=== PATIENT | male | born 1985 | race Caucasian/White ===

== ENCOUNTER 2016-12-07 09:44 | Inpatient (IN) | payer MEDICAID, OTHER ==
[2016-12-07 09:44] VITALS: BMI 24.4
--- NOTE | 2016-12-07 10:05 | C.PDOC ---
History Of Present Illness 31 Y/O MALE REQUESTING ETOH DETOX. STATES LAST DRINK WAS 2-4 DAYS AGO. NOW C/O WITHDRAWAL SYMPTOMS INCLUDING ANXIETY AND SHAKING. DENIES ANY OTHER DRUG USE. ALSO REPORTS +SUICIDAL IDEATON. DENIES HI OR ANY OTHER MEDICAL COMPLAINTS. Time Seen by Provider: 12/07/16 09:54 Chief Complaint (Nursing): Substance Abuse History Per: Patient History/Exam Limitations: no limitations Onset/Duration Of Symptoms: Persistent Current Symptoms Are (Timing): Still Present Modifying Factor(s): None Associated Symptoms: Anxiety, Suicidal Thoughts Recent travel outside of the [place]: No Past Medical History Reviewed: Historical Data, Nursing Documentation, Vital Signs Vital Signs: Last Vital Signs Temp 98.1 F 12/07/16 09:46 Pulse 79 12/07/16 09:46 Resp 18 12/07/16 09:46 BP 129/81 12/07/16 09:46 Pulse Ox 98 12/07/16 11:05 - Medical History PMH: Anxiety, Depression - [facility] Procedures PHARYNGEAL BIOPSY (07/19/14) Family History: States: Unknown Family Hx - Social History Hx Tobacco Use: Yes Hx Alcohol Use: Yes Hx Substance Use: No - Immunization History Hx Tetanus Toxoid Vaccination: No Hx Influenza Vaccination: No Hx Pneumococcal Vaccination: No Review Of Systems Constitutional: Negative for: Fever, Chills Cardiovascular: Negative for: Chest Pain, Palpitations Respiratory: Negative for: Cough, Shortness of Breath, Wheezing Gastrointestinal: Negative for: Nausea, Vomiting, Abdominal Pain Skin: Negative for: Rash Psych: Positive for: Anxiety, Suicidal ideation, Withdrawal Physical Exam - Physical Exam Appears: Non-toxic, No Acute Distress, Other (APPEARS ANXIOUS, JITTERY) Skin: Warm, Dry Head: Atraumatic, Normacephalic Oral Mucosa: Moist Chest: Symmetrical Cardiovascular: Rhythm Regular Respiratory: Normal Breath Sounds, No Rales, No Rhonchi, No Wheezing Gastrointestinal/Abdominal: Soft, No Tenderness, No Guarding, No Rebound Back: Normal Inspection Extremity: Normal ROM, Capillary Refill (< 2 SEC.) Neurological/Psych: Oriented x3, Normal Speech, Normal Cognition ED Course And Treatment - Laboratory Results Result Diagrams: 12/07/16 10:16 12/07/16 10:16 ECG: Interpreted By Me ECG Rhythm: Sinus Rhythm ECG Interpretation: Normal Rate From EC O2 Sat by Pulse Oximetry: 98 (RA) Pulse Ox Interpretation: Normal Progress - Re-Evaluation Re-evaluation Note: 12/07/16 10:05 D/W CRISIS LAURY WILL EVAL IN ER 12/07/16 11:05 MED CLEAR FOR PSYCH. CRISIS NOTIFIED - Data Reviewed Data Reviewed: Lab, Old records Disposition Counseled Patient/Family Regarding: Studies Performed, Diagnosis - Disposition Disposition: HOSPITALIZED Disposition Time: 11:27 Condition: STABLE Forms: [facility] (Uzbek) - POA Present On Arrival: None - Clinical Impression Clinical Impression: Depression, Alcohol dependence - Scribe Statement The provider has reviewed the documentation as recorded by the Scribe SM All medical record entries made by the Scribe were at my direction and personally dictated by me. I have reviewed the chart and agree that the record accurately reflects my personal performance of the history, physical exam, medical decision making, and the department course for this patient. I have also personally directed, reviewed, and agree with the discharge instructions and disposition. Decision To Admit - Pt Status Changed To: Hospital Disposition Of: Inpatient - Admit Certification Admit to Inpatient:: After my assessment, the patient will require hospitalization for at least two midnights. This is because of the severity of symptoms shown, intensity of services needed, and/or the medical risk in this patient being treated as an outpatient. - InPatient: Physician Admission Certification: I certify that this patient requires 2 or more midnights of care for the following reason:: SEE NOTE - . Bed Request Type: Psychiatry Admitting Physician: Raj Carter Patient Diagnosis: Depression, Alcohol dependence
[2016-12-07 10:20] LABS: BASO % 0.4 % (0.0-2.0); EOS # 0.2 K/uL (0.0-0.7); EOS % 1.8 % (0.0-4.0); HEMATOCRIT 49.6 % (35.0-51.0); LYMPH # 3.3 K/uL (1.0-4.3); MEAN CELL VOLUME 87.5 fL (80.0-94.0); MEAN CORPUSCULAR HEMOGLOBIN 30.1 pg (27.0-31.0); MEAN CORPUSCULAR HGB CONC 34.4 g/dL (33.0-37.0); MEAN PLATELET VOLUME 9.3 fL (7.2-11.7); MONO # 0.5 K/uL (0.0-0.8); MONO % 4.8 % (0.0-10.0); NRBC % 0.1 % (0.0-2.0); RED CELL DISTRIBUTION WIDTH 14.7 % (11.5-14.5); WHITE BLOOD COUNT 10.7 K/uL (4.8-10.8)
[2016-12-07 10:25] LABS: RBC URINE < 1 /hpf (0-3); URINE BILIRUBIN NEGATIVE (NEGATIVE); URINE BLOOD NEGATIVE (NEGATIVE); URINE COLOR Yellow (YELLOW); URINE GLUCOSE (UA) NORMAL (Normal); URINE KETONE NEGATIVE (NEGATIVE); URINE LEUKOCYTE ESTERASE NEG Leu/uL (Negative); URINE PROTEIN NEGATIVE (NEGATIVE); URINE UROBILINOGEN NORMAL mg/dL (0.2-1.0); WBC URINE < 1 /hpf (0-5)
[2016-12-07 10:45] LABS: ALB/GLOB RATIO 1.7 (1.0-2.1); ALCOHOL SERUM < 10 mg/dl (0-10); ALKALINE PHOSPHATASE 86 U/L (38-126); ALT/SGPT 117 U/L (21-72); AST/SGOT 69 U/L (17-59); BILIRUBIN,TOTAL 0.7 mg/dL (0.2-1.3); BLOOD UREA NITROGEN 5 mg/dL (9-20); CALCIUM 9.9 mg/dl (8.6-10.4); CARBON DIOXIDE 27 mmol/L (22-30); CHLORIDE 100 mmol/L (98-107); GFR AFRICAN-AMERICAN > 60; GLUCOSE,RANDOM 91 mg/dL (75-110); POTASSIUM 3.8 mmol/L (3.6-5.2); SODIUM 143 mmol/L (132-148); TOTAL PROTEIN 7.6 g/dL (6.3-8.3)
--- NOTE | 2016-12-07 12:21 | PCM.BM ---
<OscarMaggy C - Last Filed: 12/07/16 12:17> Treatment Plan Problems - Problems identified on initial assessmt Depression Date Initiated: 12/07/16 Time Initiated: 12:18 Assessment reference: NA Status: Active Suicidal Ideation Date Initiated: 12/07/16 Time Initiated: 12:18 Assessment reference: NA Status: Active Treatment assets and liabiliti Patient Assests: cooperative, ADL independent, physically healthy, negotiates basic needs, cognitively intact Patient Liabilities: live alone (with parents), financial problems (Unemployed) , poor support system, substance abuse (ETOH) - Milieu Protocol Maintain good personal hygiene: daily Encourage regular showers, daily Remind patient to perform daily oral care, other Assist patient to perform ADL's (Self) Conduct patient checks and document Observation sheet: Q15 minutes (Safety) Maintain personal safety: every shift Educate patient to report safety concerns to staff, every shift Monitor environment for contraband/sharps Medication safety: Monitor for expected outcome, potential side effects: every shift, Assess barriers to learning: every shift, Assess readiness for medication education: every shift <Raj Carter - Last Filed: 12/08/16 10:59> - Diagnosis (1) Depression Status: Acute Interventions: 12/08/16 10:59 * Assess/adjust medications daily and /or as needed * See patient on an individual basis 7x/week to assess level of depression behaviors and stability * Discuss risks, benefits, side effects and alternatives of medications * (2) Alcohol dependence Status: Acute Interventions: 12/08/16 11:00 * Assess 7x/week regarding severity of withdrawal * Educate regarding risks, benefits, side effects and alternatives of medications * Use Motivational Interviewing for abstinence * Use CBT for relapse prevention * Medication management for withdrawal symptoms * Encourage medication assisted treatment <Jacey Cota - Last Filed: 12/08/16 11:03> Family Contact Family involvement: Family/SO is involved Discharge/Continuing Care - Education Needs Education Needs: Patient Medication, Patient Coping Skills - Discharge Discharge Criteria: Tolerates medication w/o severe side effects, Free of Suicidal thoughts Discharge to:: Home, With Family - Treatment Team Participation Discussed with Family/SO: No Was Patient/Family/SO present at Treatment Team Meeting: Yes
--- NOTE | 2016-12-07 13:50 | PCM.PSYCH ---
Initial Psychiatric Evaluation - Initial Psychiatric Evaluation Type of Admission: Voluntary Legal Status: Capacity Chief Complaint (in patient's own words): "I need help." History of Present Illness and Precipitating Events: Pt. is seen, chart reviewed, and case discussed with staff. This is a 31 y/o male who presented to the ED with severe anxiety, panic attack , shaking, and palpitations. Pt. reports to having these sxs. for the past 3 days. Pt. has a history of anxiety and depression for 4 yrs., and he admits to drinking alcohol in order to cope with his anxiety. Pt. reports to having alcohol addiction for 3 yrs. As per pt., he drinks four, 24 oz beer daily and liquor sporadically. His private psychiatrist recommended that he start detoxification for alcohol in order to continue with his anti-depressants and anxiolytics. For his anxiety and depression, pt. reports to taking Xanax, Buspirone, and Citalopram. Pt. claims he does not have any side effects to medications. However , these meds have been stopped by his psychiatrist due to his drinking habits, and the pt. claims that this may have attributed to his panic attack. When he experiences these panic attacks, he claims he continues to walk around, his heart rate elevates significantly, and has excessive shakes. Pt. claims he stopped drinking alcohol 3 days ago and his panic attacks started thereafter. Pt. currently does not have withdrawal sxs.b/c the ED gave him Xanax. Pt. claims he did not sleep for the past 3 days. He admits to having suicidal ideation for the past 3 days, but did not plan or attempt it. He denies homicidal ideation. Pt. denies visual and auditory hallucinations. He reports to having 'racing of thoughts' and inability to concentrate. According to pt., "without meds, my mind just shuts down." Pt. denies delusions and elevated mood. Pt. reports to having irritability and psychomotor agitation. Pt. reports he has decreased interest in everything and has decreased appetite, but no recent weight changes. After care discussed. Pt. says once he is done with alcohol detox, he plans to go see his private psychiatrist on Tuesday. Past Psych Hx: anxiety, depression (was on Xanax, Buspirone, Citalopram); denies hospitalization, but has hx. of going to [facility]; has private psychiatrist ( [facility] Family Psych Hx: denies Social Hx: single; no children; unemployed currently, used to work at [employer] ; lives in with parents Current Medications: Active Medications Generic Name Dose Route Start Last Admin Trade Name Freq PRN Reason Stop Dose Admin Chlordiazepoxide 25 mg 12/07/16 18:00 Librium PO 12/11/16 17:59 Q6 LATRELL Taper Chlordiazepoxide 25 mg 12/07/16 12:12 Librium PO Q4H PRN Alcohol Withdrawal Clonidine HCl 0.1 mg 12/07/16 12:12 Catapres PO Q4H PRN Symptoms of alcohol withdrawl Folic Acid 1 mg 12/08/16 10:00 Folic Acid PO DAILY [facility] Multivitamins 1 tab 12/08/16 10:00 Hexavitamin PO DAILY [facility] Pneumococcal Polyvalent Vaccine 0.5 ml 12/09/16 10:00 Pneumovax 23 Vaccine IM 12/09/16 10:01 .ONCE ONE Sertraline HCl 50 mg 12/08/16 10:00 Zoloft PO DAILY [facility] Thiamine HCl 100 mg 12/08/16 10:00 Vitamin B1 Tab PO DAILY [facility] Trazodone HCl 50 mg 12/07/16 12:12 Desyrel PO HS PRN Insomnia Past Psychiatric History - Past Psychiatric History Previous Treatment History: None Pertinent Medical Hx (Current Medical&Sleep Prob, Allergies): Allergies Allergy/AdvReac Type Severity Reaction Status Date / Time No Known Allergies Allergy Verified 06/26/16 21:47 No Known Home Med 06/26/16 Review of Systems - Review of Systems All systems: reviewed and no additional remarkable complaints except - Psychiatric Psychiatric: Anxiety, Hopelessness, Irritability, Mood Swings, Suicidal Ideation Mental Status Examination - Personal Presentation Personal Presentation: Looks stated age - Affect Affect: Constricted, Depressed - Motor Activity Motor Activity: Calm - Reliability in Providing Information Reliability in Providing Information: Good - Speech Speech: Organized - Mood Mood: Depressed, Anxious - Formal Thought Process Formal Thought Process: No Impairment - Obsessions/Compulsions Obsessions: No Compulsions: No - Cognitive Functions Orientation: Person, Place, Situation, Time Sensorium: Alert Attention/Concentration: Attentive Abstract Thinking: [place] Estimate of Intelligence: Below average Judgement: Imparied, as evidence by: Poor judgement, Imparied, as evidence by: Lack of insight into illness - Risk Risk: Suicidal, Withdrawal, Diminished functioning - Limitations Limitations: Living alone DSM 5 DX - DSM 5 DSM 5 Diagnosis: Major depressive disorder recurrent severe without psychotic features Alcohol use disorder severe Alcohol withdrawal - Recommended/Plan of Treatment Treatment Recommendations and Plan of Treatment: Major depressive disorder recurrent severe without psychotic features Zoloft 50 mg PO DAILY CBT and supportive tx. Alcohol use disorder severe CBT for relapse prevention Psychoeducation Supportive therapy, individual therapy Use [place] for abstinence Alcohol withdrawal Librium detox As needed meds and vitamins Attend groups and activities [place] for abstinence and CBT for relapse prevention Support and psychoeducation Consider and encourage MAT Refer to after care. Projected ELOS: 6-7 days - Smoking Cessation Smoking Cessation Initiated: No
[2016-12-08] MEDS: Multiple Vitamins Tab PO SCH (09:59)
--- NOTE | 2016-12-08 10:59 | PCM.PYCHPN ---
Psychiatric Progress Note - Psychiatric Progress Note Patient seen today, length of contact: 16 min Patient Chief Complaint: "I need help." Medication Change: Yes (increase zoloft, librium taper) Medical Record Reviewed: Yes Mental Status Examination - Cognitive Function Orientation: Person, Place, Situation, Time Memory: Intact Attention: WNL Concentration: Poor Association: WNL Fund of Knowledge: Poor - Mood Mood: Depressed, Anxious - Affect Affect: Constricted, Depressed - Speech Speech: Soft - Formal Thought Process Formal Thought Process: No Impairment - Suicidal Ideation Suicidal Ideation: No - Homicidal Ideation Homicidal Ideation: No Goal/Treatment Plan - Goal/Treatment Plan Need for Continued Stay: Discharge may exacerbated symptoms, Severe functional impairment Progress Toward Problem(s) and Goals/Treatment Plan: Major depressive disorder recurrent severe without psychotic features Zoloft 100 mg PO DAILY CBT and supportive tx. Alcohol use disorder severe CBT for relapse prevention Psychoeducation Supportive therapy, individual therapy Use [place] for abstinence Alcohol withdrawal Librium detox As needed meds and vitamins Attend groups and activities [place] for abstinence and CBT for relapse prevention Support and psychoeducation Consider and encourage MAT Refer to after care. - Smoking Cessation Smoking Cessation Initiated: No
--- NOTE | 2016-12-08 12:49 | CARD ---
APPROVED REPORT EKG Measurement Heart [id number] <Conclusion> Normal sinus rhythm Minimal voltage criteria for LVH, may be normal variant Borderline ECG
[2016-12-08 15:58] VITALS: O2SAT 95
[2016-12-09 07:28] VITALS: RESP 19
--- NOTE | 2016-12-09 09:33 | PCM.PYCHPN ---
Psychiatric Progress Note - Psychiatric Progress Note Patient seen today, length of contact: 16 min Patient Chief Complaint: "I need help." Medication Change: Yes (increase zoloft, librium taper) Medical Record Reviewed: Yes Mental Status Examination - Cognitive Function Orientation: Person, Place, Situation, Time Memory: Intact Attention: WNL Concentration: Poor Association: WNL Fund of Knowledge: Poor - Mood Mood: Depressed, Anxious - Affect Affect: Constricted, Depressed - Speech Speech: Soft - Formal Thought Process Formal Thought Process: No Impairment - Suicidal Ideation Suicidal Ideation: No - Homicidal Ideation Homicidal Ideation: No Goal/Treatment Plan - Goal/Treatment Plan Need for Continued Stay: Discharge may exacerbated symptoms, Severe functional impairment Progress Toward Problem(s) and Goals/Treatment Plan: Major depressive disorder recurrent severe without psychotic features Zoloft 100 mg PO DAILY CBT and supportive tx. Alcohol use disorder severe CBT for relapse prevention Psychoeducation Supportive therapy, individual therapy Use [place] for abstinence Alcohol withdrawal Librium detox As needed meds and vitamins Attend groups and activities [place] for abstinence and CBT for relapse prevention Support and psychoeducation Consider and encourage MAT Refer to after care.
[2016-12-09] MEDS: Multiple Vitamins Tab PO SCH (09:44)
[2016-12-09] MEDS ORDERED: Pneumococcal 23-Valent Vaccine IM ONE (10:00)
[2016-12-10 07:33] VITALS: BP 116/73; PULSE 58; TEMP 97.9
[2016-12-10] MEDS: Multiple Vitamins Tab PO SCH (09:19)
--- NOTE | 2016-12-10 09:35 | PCM.PYCHDC ---
Mental Status Examination - Mental Status Examination Orientation: Person, Place, Situation, Time Memory: Intact Mood: Neutral Affect: Constricted Speech: Soft Attention: WNL Concentration: WNL Association: WNL Fund of Knowledge: WNL Formal Thought Process: No Impairment Description of patient's judgement and insight: good, fair Psychotic Thoughts and Behaviors: denies any AVH Suicidal Ideation: No Current Homicidal Ideation?: No Discharge Summary - Discharge Note Reason for Hospitalization: Pt. is seen, chart reviewed, and case discussed with staff. This is a 31 y/o male who presented to the ED with severe anxiety, panic attack , shaking, and palpitations. Pt. reports to having these sxs. for the past 3 days. Pt. has a history of anxiety and depression for 4 yrs., and he admits to drinking alcohol in order to cope with his anxiety. Pt. reports to having alcohol addiction for 3 yrs. As per pt., he drinks four, 24 oz beer daily and liquor sporadically. His private psychiatrist recommended that he start detoxification for alcohol in order to continue with his anti-depressants and anxiolytics. For his anxiety and depression, pt. reports to taking Xanax, Buspirone, and Citalopram. Pt. claims he does not have any side effects to medications. However , these meds have been stopped by his psychiatrist due to his drinking habits, and the pt. claims that this may have attributed to his panic attack. When he experiences these panic attacks, he claims he continues to walk around, his heart rate elevates significantly, and has excessive shakes. Pt. claims he stopped drinking alcohol 3 days ago and his panic attacks started thereafter. Pt. currently does not have withdrawal sxs.b/c the ED gave him Xanax. Pt. claims he did not sleep for the past 3 days. He admits to having suicidal ideation for the past 3 days, but did not plan or attempt it. He denies homicidal ideation. Pt. denies visual and auditory hallucinations. He reports to having 'racing of thoughts' and inability to concentrate. According to pt., "without meds, my mind just shuts down." Pt. denies delusions and elevated mood. Pt. reports to having irritability and psychomotor agitation. Pt. reports he has decreased interest in everything and has decreased appetite, but no recent weight changes. After care discussed. Pt. says once he is done with alcohol detox, he plans to go see his private psychiatrist on Tuesday. Past Psych Hx: anxiety, depression (was on Xanax, Buspirone, Citalopram); denies hospitalization, but has hx. of going [place] [facility]; has private psychiatrist ( [facility] Family Psych Hx: denies Social Hx: single; no children; unemployed currently, used to work at [employer] ; lives in with parents Consultations:: List each consultation separately and include: 1. Reason for request. 2. Findings. 3. Follow-up Summary of Hospital Course include:: 1. Description of specific treatment plan utilized for patients during their course of treatmen. 2. Summarize the time- course for resolution of acute symptoms and/or regressed behaviors. 3. Describe issues identified and worked on during hospitalization. 4. Describe medication utilized. 5. Describe medical problems identified and treated. 6. Reassessment of suicide risk Summary of Hospital Course: During the course of his stay, patient (pt) started progressively improving and he no longer remained irritable, depressed, and suicidal. His mood was improved and he started attending groups and meetings and started socializing. Patient denied any feelings of hopelessness, helplessness, and worthlessness, denied any problem with the sleep or appetite, denied suicidal ideation or homicidal ideation. Pt denied any auditory or visual hallucinations. Some changes were made in his current medications and patient was discharged on following medications. He tolerated these medications very well and denied any side effects. CBT and NV were used. - Diagnosis (1) Depression Status: Acute (2) Alcohol dependence Status: Acute - Final Diagnosis (DSM 5) Condition upon Discharge: STABLE DSM 5: Major depressive disorder recurrent severe without psychotic features Alcohol use disorder severe Alcohol withdrawal Disposition: HOME/ ROUTINE Follow-up Treatment Plan: Education: Pt was educated and counseled about the risks and benefits of taking and not taking medications. Pt was educated and counseled about the risks of drinking and abusing drugs. Pt was educated and counseled to go to the ER or call 911 if pt develop suicidal ideation or homicidal ideation, worsening of symptoms or severe side effects of the meds. Prescriptions/Medication Reconciliation: hydrOXYzine HCl [Atarax] 50 mg PO BID PRN 14 Days PRN Reason: Agitation Sertraline [Zoloft] 100 mg PO DAILY #14 tab traZODone [Desyrel] 50 mg PO HS PRN #14 tab PRN Reason: Insomnia - Smoking Cessation Smoking Cessation Medication prescribed: No - Antipsychotic Medications Pt discharged on 2 or more routine antipsychotic medications: No
== END 2016-12-10 10:30 | disposition home or self-care (01) | DRG 895 ==
LOC: C.ER 09:44 → C.5E 11:27
PROVIDERS: ADMIT Psychiatry & Neurology Psychiatry; ATTEND Psychiatry & Neurology Psychiatry
PROC: HZ2ZZZZ Detoxification Services for Substance Abuse Treatment (ICD-10-PCS; principal; 2016-12-07)
PROC: HZ52ZZZ Individual Psychotherapy for Substance Abuse Treatment, Cognitive-Behavioral (ICD-10-PCS; 2016-12-07)
PROC: HZ59ZZZ Individual Psychotherapy for Substance Abuse Treatment, Supportive (ICD-10-PCS; 2016-12-07)
PROC: HZ56ZZZ Individual Psychotherapy for Substance Abuse Treatment, Psychoeducation (ICD-10-PCS; 2016-12-07)
PROC: GZ58ZZZ Individual Psychotherapy, Cognitive-Behavioral (ICD-10-PCS; 2016-12-07)
PROC: GZ56ZZZ Individual Psychotherapy, Supportive (ICD-10-PCS; 2016-12-07)
DX: F10.230 Alcohol dependence with withdrawal, uncomplicated (principal); F33.2 Major depressive disorder, recurrent severe without psychotic features; F41.0 Panic disorder [episodic paroxysmal anxiety]

== ENCOUNTER 2016-12-23 20:31 | Emergency (ER) | payer MEDICAID, OTHER ==
[2016-12-23 20:31] VITALS: BMI 24.4
[2016-12-23 21:26] VITALS: TEMP 98.2
--- NOTE | 2016-12-23 22:28 | C.PDOC ---
History Of Present Illness 31 year old male with a Hx of depression who was admitted 2 weeks ago and given [address] Carter, presents to the ER requesting a med refill. Patient states he had an appointment this weeks but his psychiatrist is away and rescheduled his appointment until 12/30. Patient states he cannot stay without his medication refill and is requesting medication until his appointment. Denies physical complaints at this time. Time Seen by Provider: 12/23/16 21:31 Chief Complaint (Nursing): Med Refill History Per: Patient History/Exam Limitations: no limitations Onset/Duration Of Symptoms: Days Current Symptoms Are (Timing): Still Present Recent travel outside of the [place]: No Past Medical History Reviewed: Historical Data, Nursing Documentation, Vital Signs Vital Signs: Last Vital Signs Temp 98.2 F 12/23/16 21:18 Pulse 70 12/23/16 22:40 Resp 18 12/23/16 22:40 BP 122/72 12/23/16 22:40 Pulse Ox 99 12/23/16 22:40 - Medical History PMH: Anxiety, Depression Surgical History: No Surg Hx - [facility] Procedures DETOXIFICATION SERVICES FOR SUBSTANCE ABUSE TREATMENT (12/07/16) INDIV PSYCHOTHERAPY FOR SUBSTANCE ABUSE TREATMENT, SUPPORT (12/07/16) INDIV PSYCHOTHERAPY FOR SUBSTANCE ABUSE, COGNITIV BEHAVIORAL (12/07/16) INDIV PSYCHOTHERAPY FOR SUBSTANCE ABUSE, PSYCHOEDUCATION (12/07/16) INDIVIDUAL PSYCHOTHERAPY, COGNITIVE-BEHAVIORAL (12/07/16) INDIVIDUAL PSYCHOTHERAPY, SUPPORTIVE (12/07/16) PHARYNGEAL BIOPSY (07/19/14) Family History: States: Unknown Family Hx - Social History Hx Tobacco Use: Yes Hx Alcohol Use: Yes Hx Substance Use: No - Immunization History Hx Tetanus Toxoid Vaccination: No Hx Influenza Vaccination: Yes Hx Pneumococcal Vaccination: No Review Of Systems Constitutional: Negative for: Fever, Chills Gastrointestinal: Negative for: Nausea, Vomiting, Diarrhea Physical Exam - Physical Exam Appears: Non-toxic, No Acute Distress Skin: Normal Color, Warm, Dry Head: Atraumatic, Normacephalic Oral Mucosa: Moist Chest: Symmetrical, No Tenderness Cardiovascular: Rhythm Regular, No Murmur Respiratory: Normal Breath Sounds, No Rales, No Rhonchi, No Wheezing Neurological/Psych: Oriented x3, Normal Speech, Normal Cognition ED Course And Treatment O2 Sat by Pulse Oximetry: 98 (Room air) Pulse Ox Interpretation: Normal Progress Note: Case discussed with Crisis counselor Josefa who discussed with Dr. Loomis, psychiatrist division chief, who advised patient can be given 1 week Rx of medication in the ER until next psychiatry follow up. Patient given Rx and advised to follow up with psychiatry as scheduled. Disposition Counseled Patient/Family Regarding: Diagnosis, Need For Followup, Rx Given - Disposition Disposition: HOME/ ROUTINE Disposition Time: 22:24 Condition: STABLE Additional Instructions: Keep appointment with your psychiatrist Return to ER if worse Prescriptions: hydrOXYzine HCl [Atarax] 50 mg PO BID #14 tab Sertraline HCl [Zoloft] 100 mg PO DAILY #7 tablet traZODone [Desyrel] 50 mg PO HS #7 tab Forms: [employer] (Khmer) - Clinical Impression Clinical Impression: Review of medication, Depression - Scribe Statement The provider has reviewed the documentation as recorded by the Scribjustine Garcia All medical record entries made by the Scribe were at my direction and personally dictated by me. I have reviewed the chart and agree that the record accurately reflects my personal performance of the history, physical exam, medical decision making, and the department course for this patient. I have also personally directed, reviewed, and agree with the discharge instructions and disposition.
[2016-12-23 23:13] VITALS: BP 122/72; PULSE 70; RESP 18
[2016-12-24 02:53] VITALS: O2SAT 98
== END 2016-12-23 22:50 | disposition home or self-care (01) ==
LOC: C.ER 20:31
DX: F32.9 Major depressive disorder, single episode, unspecified (principal)

== ENCOUNTER 2017-08-09 08:56 | Emergency (ER) | payer MEDICAID, OTHER ==
[2017-08-09 08:56] VITALS: BMI 24.4
[2017-08-09 09:00] VITALS: TEMP 97.4; O2SAT 98
--- NOTE | 2017-08-09 09:10 | C.PDOC ---
History Of Present Illness 32yo male, otherwise well, presents to the ED with complaint of pain to his right upper and lower molars for the past week. Patient states the pain worsened yesterday, is 10/10 and he has been unable to tolerate solid food intake; patient has only been drinking fluids. Patient states pain shoots to his [employer] and is worse with chewing. Patient states he has a dentist appointment later this week. He denies any fever, chills, or neck pain. He has no other medical complaints. Time Seen by Provider: 08/09/17 09:07 Chief Complaint (Nursing): Dental Pain History Per: Patient History/Exam Limitations: no limitations Onset/Duration Of Symptoms: Days (1 week) Current Symptoms Are (Timing): Still Present Pain Scale Rating Of: 10 Quality: Positive for: "Pain" Additional History Per: Patient Past Medical History Reviewed: Historical Data, Nursing Documentation, Vital Signs Vital Signs: Last Vital Signs Temp 97.4 F L 08/09/17 08:59 Pulse 90 08/09/17 10:01 Resp 18 08/09/17 10:01 BP 138/82 08/09/17 10:01 Pulse Ox 98 08/09/17 10:01 - Medical History PMH: Anxiety, Depression Denies: Diabetes, Hepatitis, HIV, HTN, Chronic Kidney Disease, Seizures, Sexually Transmitted Disease Surgical History: No Surg Hx - [facility] DETOXIFICATION SERVICES FOR SUBSTANCE ABUSE TREATMENT (12/07/16) INDIV PSYCHOTHERAPY FOR SUBSTANCE ABUSE TREATMENT, SUPPORT (12/07/16) INDIV PSYCHOTHERAPY FOR SUBSTANCE ABUSE, COGNITIV BEHAVIORAL (12/07/16) INDIV PSYCHOTHERAPY FOR SUBSTANCE ABUSE, PSYCHOEDUCATION (12/07/16) INDIVIDUAL PSYCHOTHERAPY, COGNITIVE-BEHAVIORAL (12/07/16) INDIVIDUAL PSYCHOTHERAPY, SUPPORTIVE (12/07/16) PHARYNGEAL BIOPSY (07/19/14) Family History: States: No Known Family Hx, Unknown Family Hx - Social History Hx Tobacco Use: Yes Hx Alcohol Use: No Hx Substance Use: No - Immunization History Hx Tetanus Toxoid Vaccination: No Hx Influenza Vaccination: No Hx Pneumococcal Vaccination: No Review Of Systems Except As Marked, All Systems Reviewed And Found Negative. Constitutional: Negative for: Fever, Chills ENT: Positive for: Other (dental pain) Musculoskeletal: Negative for: Neck Pain Physical Exam - Physical Exam Appears: Non-toxic, No Acute Distress Skin: Normal Color, Warm, Dry Head: Atraumatic, Normacephalic Eye(s): bilateral: Normal Inspection Oral Mucosa: Moist Teeth: Other (dental decay to right upper and lower molar as well and left lower molar.) Gingiva: Normal Appearing, No Erythema, No Swelling, No Tender, No Abscess Throat: Normal, No Erythema Neck: Normal ROM, Supple Cardiovascular: Rhythm Regular Respiratory: Normal Breath Sounds Neurological/Psych: Oriented x3 ED Course And Treatment O2 Sat by Pulse Oximetry: 98 (RA) Pulse Ox Interpretation: Normal Medical Decision Making Medical Decision Making: Impression: Dental pain Plan: -- Motrin 600mg PO -- Tramadol 50mg PO -- Penicillin 1000mg PO Time: 944 Patient instructed to follow up with his dentist; also instructed to take antibiotics as prescribed. Disposition Counseled Patient/Family Regarding: Diagnosis, Need For Followup, Rx Given - Disposition Disposition: HOME/ ROUTINE Disposition Time: :45 Condition: STABLE Prescriptions: Ibuprofen [Motrin] 600 mg PO TID #15 tab Penicillin VK [Pen-Vee K] 2 tab PO BID #28 tab traMADol/Acetaminophen [Ultracet 37.5/325 mg] 1 tab PO TID PRN #15 tab PRN Reason: pain Instructions: Tooth Decay, Adult Forms: General Discharge Instructions, [facility] ([place]), School Excuse, Work Excuse - POA Present On Arrival: None - Clinical Impression Clinical Impression: Dental caries - Scribe Statement The provider has reviewed the documentation as recorded by the Daniel Rivera Provider Attestation: All medical record entries made by the Daniel were at my direction and personally dictated by me. I have reviewed the chart and agree that the record accurately reflects my personal performance of the history, physical exam, medical decision making, and the department course for this patient. I have also personally directed, reviewed, and agree with the discharge instructions and disposition.
[2017-08-09 10:03] VITALS: BP 138/82; PULSE 90; RESP 18
== END 2017-08-09 10:03 | disposition home or self-care (01) ==
LOC: C.ER 08:56
DX: K02.9 Dental caries, unspecified (principal)